=== PATIENT | male | born 1955 ===

== ENCOUNTER 2023-04-27 05:10 | Day surgery (SDC) | payer OTHER ==
[~2023-04-27] VITALS: Ht 162.6 cm; Wt 57.2 kg
[~2023-04-27 05:10] MED LIST: ADULT LOW DOSE81 M1 PO; PANTOPRAZOLE SO40 M2 PO; PREDNISONE PO; SIMVAST PO; SINGULAIR10 MG PO; TAMS0.4C PO; [UNRECOGNIZED DRUG - OTHER]
[2023-04-27] MEDS ORDERED: OXYC1TAB9 PO (15:30)
== END 2023-04-27 20:35 | disposition home or self-care (01) ==
LOC: CIR.AMB 05:10
PROVIDERS: ATTEND Surgery
DX: K60.3 Anal fistula (principal); K62.89 Other specified diseases of anus and rectum; K62.5 Hemorrhage of anus and rectum; I10 Essential (primary) hypertension; Z20.822 Contact with and (suspected) exposure to COVID-19